=== PATIENT | female | born 1955 | race Two or more races ===

== ENCOUNTER 2016-10-19 01:38 | Emergency (ER) | payer SELFPAY ==
[2016-10-19] MEDS ORDERED: CEPHALEXIN 500 MG CAPSULE ONE (02:06)
[2016-10-19] MEDS ORDERED: IBUPROFEN 800 MG TABLET ONE (02:06)
== END 2016-10-19 02:22 | disposition home or self-care (01) ==
LOC: ED 01:38
DX: L03.116 Cellulitis of left lower limb (principal)
CPT/HCPCS: 99283 ×2; A9270 ×2